=== PATIENT | male | born 1980 | race Caucasian/White ===

== ENCOUNTER 2016-05-02 09:58 | Emergency (ER) | payer MEDICAID ==
[~2016-05-02] VITALS: Ht 185.4 cm; Wt 67.5 kg
[~2016-05-02 09:58] MED LIST: ALPR.25T PO; AMOX-356 PO; AMOX875T2 PO; BPR100T PO; BPR75T PO; GBPN300C PO; HYDR-3702 PO; HYDR-3811; METR500T17 PO; NO KNOWN MEDS; No home meds; OXYC1TAB7 PO; TAMS-8 PO; TEMA30CA PO; TEST200V3 IM; ZLP5T
--- OUTSIDE RECORDS SUMMARY | 2016-05-02 10:02 | XMS REPORT | Continuity of Care Document ---
Author Author [facility] Organization [facility] Address Unknown Phone Unavailable Support Name Relationship Address Phone DONALD MOORE DO Caregiver [address] [place] [address] DriscollYakov Caregiver [address] [place] [address] RACHELLE KIRKPATRICK Next Of Kin [address] [place] [address] Insurance Providers Payer Name Policy Number Subscriber Name Relationship [facility] [id number] Michael Presley 16 Self / Same As Patient Chief Complaint and Reason for Visit Chief Complaint Pain Reason for Visit Knee pain Problems Medical Problems Problem Onset Date Status Pain in limb Unknown Active Urinary tract infection Unknown Active Knee pain Unknown Active Medications Medication Dose Route Sig Days/Qty Instructions Order Date Discontinued Date Status [No Known Meds] 01/28/14 09/10/14 Discontinued [No home meds] 09/10/14 Active Hydrocodone Bit/Acetaminophen 1 Each ORAL THREE TIMES A DAY 12 Qty Active Social History No social history. Hospital Discharge Instructions No hospital discharge instructions. Plan of Care Discharge Date 09/10/14 5:15pm Disposition 01 HOME OR SELF-CARE Condition at Discharge Stable Instructions/Education Provided Knee Sprain (ED) Prescriptions See Medications Section Additional Instructions/Education Follow up with primary care doctor and orthopedic doctor. return to ER as needed. Some of your test results may not be complete prior to your leaving the Emergency Department. The Emergency Department is not authorized to give test results over the phone. Please contact the doctor's office listed in this packet of information for your final results. Follow up with your primary care physician or return to the Emergency Department for worsening or worrisome symptoms. * Emergency Department phone number: [phone], x [phone]* MEDICAL RECORD If you need copies of your X-rays, call [phone]. If you need copies of your medical record, including lab results, a signed authorization for release of records will be required. A telephone call for release of Health Information is not allowed. BILLING Billing can sometimes be confusing and frustrating. To help avoid confusion in the future, please take a moment to acquaint yourself with the billing parties for services. SERVICE BILLING REPUBLICAN Emergency Room Services [facility] Physician Services [facility] Patients will receive bills for services from the appropriate provider. If you have any questions about your [facility] bill, our staff will be happy to assist you. Please call [phone], and ask for the billing department. THANK YOU for choosing [facility] as your emergency care provider! Functional Status No functional status results. Allergies, Adverse Reactions, Alerts Allergen Type Severity Reaction Status Last Updated NSAIDS (Non-Steroidal Anti-Inflamma Allergy Unknown Active 09/10/14 Lidocaine Allergy Unknown Vomiting Active 01/28/14 Immunizations No immunization records. Vital Signs Acute Vital Signs Vital Response Date/Time Temperature (Fahrenheit) 98.6 Pulse 103 bpm Respirations 20 Height 6 ft 1 in Weight 175 lb Body Mass Index 23.0 kg/m^2 Results Test Source Date Result Interp. Ref. Range Comments Anion Gap January 28, 2014 10:13pm 11.1 MEQ/L N 3-15 BUN/Creatinine Ratio January 28, 2014 10:13pm 9 L 10-20 Basophils # (Auto) January 28, 2014 10:13pm 0.0 10^3uL Basophils (%) (Auto) January 28, 2014 10:13pm 0 % N 0-2 Blood Urea Nitrogen January 28, 2014 10:13pm 10 MG/DL N 7-18 Calcium Level January 28, 2014 10:13pm 9.3 MG/DL N 8.8-10.8 Carbon Dioxide Level January 28, 2014 10:13pm 30 MMOL/L H 22-29 Chloride Level January 28, 2014 10:13pm 104 mmol/L N 98-108 Creatinine January 28, 2014 10:13pm 1.10 mg/dL N 0.8-1.5 Eosinophils # (Auto) January 28, 2014 10:13pm 0.2 10^3uL Eosinophils (%) (Auto) January 28, 2014 10:13pm 3 % N 0-4 Glucose Level January 28, 2014 10:13pm 93 mg/dL N 70-110 Hematocrit January 28, 2014 10:13pm 41.70 % N 39.00-50.00 Hemoglobin January 28, 2014 10:13pm 15.1 g/dL N 13.5-17.0 Lymphocytes # (Auto) January 28, 2014 10:13pm 1.6 X10^3 Lymphocytes (%) (Auto) January 28, 2014 10:13pm 27 % N 20-46 Mean Corpuscular Hemoglobin January 28, 2014 10:13pm 28.9 PG N 26.0- 34.0 Mean Corpuscular Hemoglobin Concent January 28, 2014 10:13pm 36.2 g/dL N 31.0-37.0 Mean Corpuscular Volume January 28, 2014 10:13pm 80 FL N 80-100 Mean Platelet Volume January 28, 2014 10:13pm 9.3 FL N 6.0-9.5 Monocytes # (Auto) January 28, 2014 10:13pm 0.6 X10^3 Monocytes (%) (Auto) January 28, 2014 10:13pm 10 % N 3-11 Neutrophils # (Auto) January 28, 2014 10:13pm 3.5 X10^3 Neutrophils (%) (Auto) January 28, 2014 10:13pm 60 % N 51-67 Platelet Count January 28, 2014 10:13pm 220 10^3uL N 150-450 Potassium Level January 28, 2014 10:13pm 3.6 mmol/L N 3.5-5.1 Red Blood Count January 28, 2014 10:13pm 5.23 10^6uL N 4.50-5.50 Red Cell Distribution Width January 28, 2014 10:13pm 13.1 % N 11.8-15.6 Sodium Level January 28, 2014 10:13pm 141 MMOL/L N 135-150 White Blood Count January 28, 2014 10:13pm 5.91 10^3uL N 4.0-11.0 Estimat Glomerular Filtration Rate January 28, 2014 10:13pm 92.2 Estimated GFR (Non- January 28, 2014 10:13pm 76.2 Procedures No known history of procedures. Encounters Encounter Location Date/Time Departed Emergency Room [facility] 09/10/14 4:26pm Recent Diagnosis
--- OUTSIDE RECORDS SUMMARY | 2016-05-02 10:03 | XMS REPORT | Continuity of Care Document ---
Author Author [facility] Organization [facility] Address Unknown Phone Unavailable Support Name Relationship Address Phone DONALD MOORE DO Caregiver [address] [place] [address] DriscollYakov Caregiver [address] [place] [address] RACHELLE KIRKPATRICK Next Of Kin [address] [place] [address] Insurance Providers Payer Name Policy Number Subscriber Name Relationship [facility] [id number] Michael Presley 16 Self / Same As [...] worrisome symptoms. * Emergency Department phone number: [phone], x [phone]* MEDICAL RECORD If you need copies of your X-rays, call [phone]. If you need copies of [...] the billing parties for services. SERVICE BILLING LIBERTARIAN Emergency Room Services [facility] Physician Services [facility] [place] [facility] Patients will receive bills for services from the appropriate provider. If you have any questions about your [facility] bill, our staff will be happy to assist you. Please call [phone], and ask for the billing department. THANK YOU for choosing [facility] as your emergency care provider! Functional Status [...] Encounters Encounter Location Date/Time Departed Emergency Room [facility] 09/10/14 4:26pm Recent Diagnosis
[2016-05-02] MEDS ORDERED: SODIUM CHLORIDE FLUSH 10 ML SYR IV PRN (10:20)
[2016-05-02] MEDS ORDERED: SODIUM CHLORIDE FLUSH 3 ML SYR IV PRN (10:20)
[2016-05-02] MEDS ORDERED: HYDROmorphone 1 MG/ML (DILAUDID) SYRINGE IV ONE ×2 (10:25→11:50)
[2016-05-02] MEDS ORDERED: ONDANSETRON 2 MG/ML (Z0FRAN) 2 ML VIAL IV ONE (10:25)
[2016-05-02 10:35] LABS: MEAN CORPUSCULAR HEMOGLOBIN 29.7 PG (26.0-34.0); MEAN CORPUSCULAR VOLUME 83 FL (80-100); MEAN PLATELET VOLUME 9.1 FL (6.0-9.5); PLATELET COUNT 226 10^3uL (150-450); WHITE BLOOD COUNT 7.05 10^3uL (4.0-11.0)
[2016-05-02 10:36] LABS: BILIRUBIN,URINE Negative (Negative); CLARITY,URINE Clear; GLUCOSE, URINE (UA) Negative (Negative); LEUKOCYTE ESTERASE ,URINE Negative (Negative); UROBILINOGEN,URINE 0.2 mg/dL (0.2-1.0)
[2016-05-02 10:40] LABS: COLOR,URINE Dark Yellow
[2016-05-02 10:46] LABS: BASOPHILS % (AUTO) 0 % (0-2); EOSINOPHILS # (AUTO) 0.2 10^3uL; EOSINOPHILS % (AUTO) 2 % (0-4); LYMPHOCYTES # (AUTO) 2.5 X10^3; MONOCYTES # (AUTO) 0.6 X10^3; MONOCYTES % (AUTO) 8 % (3-11); NEUTROPHILS # (AUTO) 3.8 X10^3; NEUTROPHILS % (AUTO) 53 % (51-67)
[2016-05-02 10:49] LABS: ALBUMIN 4.9 g/dL (3.4-5.0); ANION GAP 17.8 MEQ/L (3-15); CALCULATED IONIZED CALCIUM 4.2 mg/dL (3.8-4.6); TOTAL PROTEIN 7.6 g/dL (6.4-8.5)
--- NOTE | 2016-05-02 11:55 | Diagnostic Imaging Report ---
PROCEDURE: CT abdomen and pelvis without contrast. TECHNIQUE: Multiple contiguous axial images were obtained through the abdomen and pelvis without the use of intravenous contrast. INDICATION: Flank pain. COMPARISON: CT abdomen and pelvis without contrast on 02/05/2016. FINDINGS: A small fat containing nodule in the left lung base along the diaphragm measuring up to 9 mm should be benign. Cholecystectomy. The liver, pancreas, spleen, adrenals, kidneys, and collecting systems are negative. There is a large amount of stool throughout the colon and rectum. There remains an appendicolith within the appendix which is now overlying the midline. There may be some mild wall thickening which has increased since the prior exam. There are no periappendiceal inflammatory changes or fluid collections. No free intraperitoneal air/fluid, lymphadenopathy, or evidence of bowel obstruction. IMPRESSION: 1. Again noted is the appendicolith within the appendix which is now overlying the midline abdomen. There may be some increased wall thickening in the appendix since the prior exam; however, there is no periappendiceal inflammatory change or fluid collection. 2. The large amount of stool throughout the colon and rectum likely represents a degree of constipation. This has increased since the prior exam. Dictated by: Dictated on workstation # [id number]
[2016-05-02] MEDS ORDERED: OXYC-109 PO (12:56)
[2016-05-02 13:34] VITALS: BP 104/71
== END 2016-05-02 13:10 | disposition home or self-care (01) ==
LOC: ED 10:00
DX: M54.89 Other dorsalgia (principal)
CPT/HCPCS: 36415; 74176; 80053; 81003; 83690; 85025; 96361; 96374; 96375; 96376; 99284; J1170; J2405; J7030; 99283

== ENCOUNTER 2016-05-07 07:54 | Emergency (ER) | payer MEDICAID ==
[~2016-05-07] VITALS: Ht 177.8 cm; Wt 69.0 kg
[~2016-05-07 07:54] MED LIST changes: +OXYC-109 PO
--- OUTSIDE RECORDS SUMMARY | 2016-05-07 07:58 | XMS REPORT | Continuity of Care Document ---
Author Author [facility] Organization [facility] Address Unknown Phone Unavailable Support Name Relationship Address Phone DONALD MOORE DO Caregiver [address] [place] [address] DriscollYakov Caregiver [address] [place] [address] RACHELLE KIRKPATRICK Next Of Kin [address] [place] [address] Insurance Providers Payer Name Policy Number Subscriber Name Relationship Amy [facility] [id number] Michael Presley 16 Self / Same As [...] worrisome symptoms. * Emergency Department phone number: [phone], x [phone]* MEDICAL RECORD If you need copies of your X-rays, call [phone] x [phone]. If you need copies of [...] the billing parties for services. SERVICE BILLING DEMOCRAT Emergency Room Services [facility] Physician Services [facility] [place] [facility] Patients will receive bills for services from the appropriate provider. If you have any questions about your [facility] bill, our staff will be happy to assist you. Please call [phone], and ask for the billing department. THANK YOU for choosing [facility] as your emergency care provider! Functional Status [...] Encounters Encounter Location Date/Time Departed Emergency Room [facility] 09/10/14 4:26pm Recent Diagnosis
--- OUTSIDE RECORDS SUMMARY | 2016-05-07 07:58 | XMS REPORT | Continuity of Care Document ---
Author Author [facility] Organization [facility] Address Unknown Phone Unavailable Support Name Relationship Address Phone DONALD MOORE DO Caregiver [address] [place] [address] DriscollYakov Caregiver [address] [place] [address] RACHELLE KIRKPATRICK Next Of Kin [address] [place] [address] Insurance Providers Payer Name Policy Number Subscriber Name Relationship [facility] [id number] Michael Presley 16 Self / Same As [...] worrisome symptoms. * Emergency Department phone number: [phone], x [phone]* MEDICAL RECORD If you need copies of your X-rays, call [phone]. If you need copies of [...] services. SERVICE BILLING DEMOCRAT Emergency Room Services [facility] Physician Services [facility] [place] [facility] Patients will receive bills for services from the appropriate provider. If you have any questions about your [facility] bill, our staff will be happy to assist you. Please call [phone], and ask for the billing department. THANK YOU for choosing [facility] as your emergency care provider! [...] Encounters Encounter Location Date/Time Departed Emergency Room [facility] 09/10/14 4:26pm Recent Diagnosis
[2016-05-07] MEDS ORDERED: ORPHENADRINE 60 MG/2 ML (NORFLEX) AMP IM ONE (08:15)
[2016-05-07] MEDS ORDERED: ONDANSETRON 4 MG (ZOFRAN) ORAL DISSOLVE TAB PO ONE (08:15)
[2016-05-07] MEDS ORDERED: HYDROmorphone 1 MG/ML (DILAUDID) SYRINGE IM ONE (08:15)
[2016-05-07] MEDS ORDERED: CYCL10TA45 PO (08:18)
[2016-05-07 08:28] VITALS: BP 118/80
== END 2016-05-07 08:20 | disposition home or self-care (01) ==
LOC: ED 07:55
DX: M54.5 Low back pain (principal)
CPT/HCPCS: 96372; 99282; A9270; J1170; J2360; 99283